=== PATIENT | male | born 1945 | race Caucasian/White ===

== ENCOUNTER 2022-03-09 09:40 | Day surgery (SDC) | payer MEDICARE, BC, SELFPAY ==
[2022-03-09] VITALS (11 sets, daily range): BP systolic 96–144; BP diastolic 53–86; PULSE 49–62; RESP 16–20; TEMP 36.3–36.6; O2SAT 93–99; BMI 25.5
[2022-03-09] MEDS: ETHYL CHLORIDE 1 APPLICATION 1 APPLIC TOPICAL (10:15)
[2022-03-09] MEDS: SODIUM CHLORIDE 0.9 % (FLUSH) 10 ML SYRINGE IVF (10:15)
[2022-03-09] MEDS: LACTATED RINGERS 1000 ML 1,000 ML 100 ML IV (10:15)
--- NOTE | 2022-03-09 10:23 | SUR.PREOP ---
covid home test negative. unable to remove weddng band. anesthesia aware
[2022-03-09] MEDS: BUPIVACAINE 0.25% 30 ML 20 ML INJECTION (11:54)
[2022-03-09] MEDS: LIDOCAINE 0.5%-EPI 1:200,000 50 ML VIAL 20 ML INJECTION (11:54)
--- NOTE | 2022-03-09 12:16 | W.ANESCHARGE ---
Anesthesia Charges Start Date/Time Anesthesia Start Date: 03/09/22 Anesthesia Start Time: 11:20 Stop Date/Time Anesthesia Stop Date: 03/09/22 Anesthesia Stop Time: 12:45 Summary Emergency: No Extremes of Age: Over 72-CPT 24345
[2022-03-09] MEDS: 0.9 % SODIUM CHL 20 ml vial 10 ML INJECTION (12:30)
[2022-03-09] MEDS: BUPIVACAINE LIPOSOME 133 MG/10 ML INJ INFILTRATI (12:30)
--- NOTE | 2022-03-09 12:44 | W.ANESCHARGE ---
Anesthesia Charges Start Date/Time Anesthesia Start Date: 03/09/22 Anesthesia Start Time: 11:20 Stop Date/Time Anesthesia Stop Date: 03/09/22 Anesthesia Stop Time: 12:45 Summary Emergency: No
--- NOTE | 2022-03-09 12:53 | P.GSOP_ITS ---
Operative Note Date of procedure: 03/09/22 Indications: 77 y.o. male was seen in clinic for evaluation of enlarged external hemorrhoids. He has been bothered by the perianal tissue on the outside of his anus for 10- 15 years. He was complaining of difficulties keeping himself clean. Patient's bowel movements are daily and regular, and he only occasionally notices straining. He denied pain with bowel movements. His last colonoscopy was in 2019 and 5-year follow-up was recommended. On clinical exam he had moderately to large redundant external hemorrhoidal tissue circumferentially with minimally enlarged internal hemorrhoidal tissue. Given patient's symptoms and his difficulties keeping himself clean, 3 quadrant external hemorrhoidectomy was recommended. The procedure was discussed in detail. The risks associated the procedure including infection, bleeding, incontinence, severe postoperative pain, and residual external hemorrhoidal tissue were all discussed with the patient, and he agreed to proceed. ? Procedure Description: After discussing the risks and benefits of the procedure, the patient signed informed consent.? The operative site was marked and the patient was brought to the operating room. Spinal anesthesia was administered and patient was placed prone on the operating table. All pressure points were padded.? The patient was then sedated by anesthesia.?? The operative site was then prepped and draped in the usual sterile fashion.? A time-out was then performed. Local anesthetic was injected around the anus. External examination, digital rectal examination, and anoscopic examination were all done and revealed significantly redundant external hemorrhoidal tissue circumferentially. Digital rectal exam and anoscopy were also done and revealed enlarged internal hemorrhoidal tissue right posterior laterally and left laterally as well. I then proceeded with 3 quadrant hemorrhoidectomy. I first started right posteriorly, then left laterally, and then anterior midline. The external hemorrhoidectomy right posterior laterally and left laterally was done in a similar fashion. An elliptical incision was made with a needle tip electrocautery from the anoderm up into the anal canal just above the dentate line. Careful dissection of the hemorrhoid complex was done in the plane between the internal anal sphincter and the submucosal vascular plexus up to just above the dentate line in each quadrant described above. Having established the proper plane, the hemorrhoidal tissue was then excised with the Ligasure device and sent to Pathology for analysis. Care was taken to preserve mucosa for a tension-free closure. The internal sphincter fibers were visualized at the base of the wound and were intact. The wound was closed in a running locked manner starting at the apex (proximal aspect of elliptical excision) with 3-0 chromic suture, coming out to the anoderm and then running back up in a simple fashion and tying down at the apex. Hemostasis was excellent. The excision of anterior midline redundant hemorrhoidal skin tag was done in a Y like fashion with needlepoint tip cautery. The skin was incised with cautery and careful dissection of the hemorrhoidal complex was done in the plane between the internal sphincter and submucosal vascular plexus excising the redundant skin. Once the skin was excised, the incision was then closed with a running 3- 0 Vicryl suture starting externally and continuing to one arm of the Y incision. After the suture was secured in place, the second arm of Y incision was then closed with a running 3-0 Vicryl suture. Hemostasis was excellent. Exparel was injected for bilateral pudendal nerve block and perianally. ? Sterile dressings were then applied outside of the anus. ? The patient was then woken and transported to the recovery area in stable condition. ? The patient tolerated the procedure well. Findings: Redundant external hemorrhoidal skin tags. Anesthesia: local and spinal Surgeon: Wang Abdul MD Estimated blood loss (mL): 5 Condition: stable Disposition: PACU
== END 2022-03-09 14:33 | disposition home or self-care (01) ==
PROVIDERS: PCP Family Medicine; Visit Provider Surgery
PROC: (CPT 46250; principal; 2022-03-09 11:00)
DX: K64.4 Residual hemorrhoidal skin tags (principal)
CPT/HCPCS: 46250; 00902; 88304; 99100; C9290; J2250; J2400; J2704; J3010; J3490; J7120